=== PATIENT | female | born 1965 | race Caucasian/White ===

== ENCOUNTER 2017-10-29 14:08 | Emergency (ER) | payer BC ==
[2017-10-29 14:26] VITALS: BP 150/85; PULSE 71; TEMP 98.1; BMI 23.8
--- NOTE | 2017-10-29 15:32 | PDOC ---
Rapid Medical Evaluation Chief Complaint: Pain Time Seen by Provider: 10/29/17 15:30 Medical Evaluation: Allergies Allergy/AdvReac Type Severity Reaction Status Date / Time No Known Allergies Allergy Verified 10/29/17 14:22 Vital Signs Temp Pulse Resp BP Pulse Ox 98.1 F 71 18 150/85 100 10/29/17 14:23 10/29/17 14:23 10/29/17 14:23 10/29/17 14:23 10/29/17 14:23 10/29/17 15:30 I have performed a brief in-person evaluation of this patient. The patient presents with a chief complaint of: pain to RLQ since today, denies F/C/V/D Pertinent physical exam findings: tenderness to RLQ I have ordered the following: labs, urine The patient will proceed to the ED for further evaluation. Discharge Disposition - Diagnosis Right lower quadrant abdominal pain - Referrals - Patient Instructions - Post Discharge Activity
[2017-10-29] MEDS ORDERED: SODIUM CHLORIDE 0.9% 1000 ML INFUS.BAG IV ONE (15:54)
[2017-10-29 16:04] LABS: BASO % 0.9 % (0-2.0); EOS % 1.4 % (0-4.5); HEMATOCRIT 31.9 % (32.4-45.2); HEMOGLOBIN 10.8 GM/dL (10.7-15.3); MCH 31.4 pg (25.7-33.7); MCHC 33.9 g/dl (32.0-36.0); MEAN CELL VOLUME 92.7 fl (80-96); MEAN PLT VOLUME 8.8 fl (7.5-11.1); MONO % 8.5 % (3.8-10.2); NEUT % 41.2 % (42.8-82.8); PLATELET COUNT 237 K/MM3 (134-434); RBC 3.44 M/mm3 (3.60-5.2); RDW 13.5 % (11.6-15.6); WHITE BLOOD COUNT 4.7 K/mm3 (4.0-10.0)
[2017-10-29 16:23] LABS: URINE APPEARANCE CLEAR; URINE BILIRUBIN NEGATIVE (<2.0 mg/dL); URINE BLOOD 1+ (NEGATIVE); URINE COLOR STRAW; URINE GLUCOSE (UA) NEGATIVE (NEGATIVE); URINE KETONE NEGATIVE (NEGATIVE); URINE LEUK ESTERASE NEGATIVE (NEGATIVE); URINE NITRITE NEGATIVE (NEGATIVE); URINE PROTEIN NEGATIVE (NEGATIVE); URINE UROBILINOGEN NEGATIVE mg/dL (0.2-1.0)
[2017-10-29 16:25] LABS: HCG,QUALITATIVE URINE NEGATIVE
[2017-10-29 16:34] LABS: EPI CELLS RARE /HPF (FEW)
[2017-10-29 16:41] LABS: ALBUMIN 3.6 g/dl (3.4-5.0); ANION GAP 5 (8-16); BLOOD UREA NITROGEN 11 mg/dL (7-18); CALCIUM 8.9 mg/dL (8.5-10.1); CHLORIDE 108 mmol/L (98-107); CO2 28 mmol/L (21-32); CREATININE 0.6 mg/dL (0.55-1.02); GLUCOSE,RANDOM 96 mg/dL (74-106); POTASSIUM 3.4 mmol/L (3.5-5.1); SGOT/AST 17 U/L (15-37); SGPT/ALT 23 U/L (12-78); SODIUM 141 mmol/L (136-145)
[2017-10-29 16:43] LABS: ALK PHOS 70 U/L (45-117); BILIRUBIN,TOTAL 0.3 mg/dL (0.2-1.0); TOT PROT 6.7 g/dl (6.4-8.2)
--- NOTE | 2017-10-29 18:46 | PDOC ---
History of Present Illness - General History Source: Patient Exam Limitations: No Limitations - History of Present Illness Initial Comments: 10/29/17 18:48 The patient is a 51 year old female with a significant PMH of HTN and urethral prolapse who presents to the emergency department with right sided abdominal pain beginning approximately this morning. She reports waking up this morning with sharp mid to lower right sided abdominal pain which has been worsening and is aggravated by eating, prompting her visit. She notes her abdominal pain alternates between mildly and severely painful. She also reports noting a weird taste in her mouth this morning. The patient denies hematuria. She denies nausea or vomiting. The patient denies chest pain, shortness of breath, headache, and dizziness. Denies fevers, chills, diarrhea, and constipation. Denies dysuria, frequency, urgency. Allergies: NKA Past surgical history: x2. Social history: No reported cigarette, alcohol, or drug use. PCP: None reported. <Jean Marie Peralta - Last Filed: 10/29/17 18:48> <Jeny Urbano - Last Filed: 11/01/17 09:33> - General Chief Complaint: Pain Stated Complaint: RT ABD PAIN Time Seen by Provider: 10/29/17 15:30 Past History <Jean Marie Peralta - Last Filed: 10/29/17 18:48> - Past Medical History COPD: No DVT: No HTN: Yes - Immunization History Immunization Up to Date: Yes - Suicide/Smoking/Psychosocial Hx Smoking History: Never smoked Have you smoked in the past 12 months: No Information on smoking cessation initiated: No Hx Alcohol Use: No Drug/Substance Use Hx: No Substance Use Type: None <Jeny Urbnao - Last Filed: 11/01/17 09:33> - Past Medical History Allergies/Adverse Reactions: Allergies Allergy/AdvReac Type Severity Reaction Status Date / Time No Known Allergies Allergy Verified 10/29/17 14:22 Home Medications: Ambulatory Orders Telmisartan 80 mg PO HS 10/29/17 Review of Systems - Review of Systems Able to Perform ROS?: Yes Comments:: 10/29/17 18:48 GENERAL/CONSTITUTIONAL: No fever or chills. No weakness. HEAD, EYES, EARS, NOSE AND THROAT: No change in vision. No ear pain or discharge. No sore throat. CARDIOVASCULAR: No chest pain or shortness of breath. RESPIRATORY: No cough, wheezing, or hemoptysis. GASTROINTESTINAL: (+) Right side mid to lower abdominal pain. No nausea, vomiting, diarrhea or constipation. GENITOURINARY: No dysuria, frequency, or change in urination. MUSCULOSKELETAL: No joint or muscle swelling or pain. No neck or back pain. SKIN: No rash NEUROLOGIC: No headache, vertigo, loss of consciousness, or change in strength/ sensation. ENDOCRINE: No increased thirst. No abnormal weight change. HEMATOLOGIC/LYMPHATIC: No anemia, easy bleeding, or history of blood clots. ALLERGIC/IMMUNOLOGIC: No hives or skin allergy. <Jean Marie Peralta - Last Filed: 10/29/17 18:48> *Physical Exam - Vital Signs Last Vital Signs Temp Pulse Resp BP Pulse Ox 98.1 F 71 18 150/85 100 10/29/17 14:23 10/29/17 14:23 10/29/17 14:23 10/29/17 14:23 10/29/17 14:23 - Physical Exam Comments: 10/29/17 18:48 GENERAL: Awake, alert, and fully oriented, in no acute distress HEAD: No signs of trauma EYES: PERRLA, EOMI, sclera anicteric, conjunctiva clear ENT: Auricles normal inspection, nares patent. Moist mucosa NECK: Normal ROM, supple, no JVD, or masses LUNGS: Breath sounds equal, clear to auscultation bilaterally. No wheezes, and no crackles HEART: Regular rate and rhythm, normal S1 and S2, no murmurs, rubs or gallops ABDOMEN: (+) Right mid to lower quadrant tenderness. (+) LUQ tenderness. Soft, normoactive bowel sounds. No guarding, no rebound. No masses EXTREMITIES: Normal range of motion, no edema. No clubbing or cyanosis. No cords, erythema, or tenderness NEUROLOGICAL: Alert and oriented x 3. Moves all extremities. Face is symmetric. SKIN: Warm, Dry, normal turgor, no rashes or lesions noted. <Jean Marie Peralta - Last Filed: 10/29/17 18:48> - Vital Signs Last Vital Signs Temp Pulse Resp BP Pulse Ox 98.1 F 71 18 150/85 100 10/29/17 14:23 04/23/18 14:23 10/29/17 14:23 10/29/17 14:23 10/29/17 14:23 <Jeny Urbano - Last Filed: 11/01/17 09:33> ED Treatment Course - LABORATORY CBC & Chemistry Diagram: 10/29/17 15:53 10/29/17 15:53 - ADDITIONAL ORDERS Additional order review: Laboratory Results 10/29/17 10/29/17 10/29/17 15:53 15:53 15:53 Sodium 141 Potassium 3.4 L Chloride 108 H Carbon Dioxide 28 Anion Gap 5 L BUN 11 Creatinine 0.6 Creat Clearance w eGFR > 60 Random Glucose 96 Calcium 8.9 Total Bilirubin 0.3 AST 17 ALT 23 Alkaline Phosphatase 70 Total Protein 6.7 Albumin 3.6 Lipase 123 Urine Color Straw Urine Appearance Clear Urine pH 6.0 Ur Specific Brinkley 1.004 Urine Protein Negative Urine Glucose (UA) Negative Urine Ketones Negative Urine Blood 1+ H Urine Nitrite Negative Urine Bilirubin Negative Urine Urobilinogen Negative Ur Leukocyte Esterase Negative Urine WBC (Auto) <1 Urine RBC (Auto) 1 Ur Epithelial Cells Rare Urine HCG, Qual Negative 10/29/17 15:53 RBC 3.44 L MCV 92.7 MCHC 33.9 RDW 13.5 MPV 8.8 Neutrophils % 41.2 L Lymphocytes % 48.0 H Monocytes % 8.5 Eosinophils % 1.4 Basophils % 0.9 - Medications Given in the ED: ED Medications Discontinued Medications Generic Name Dose Route Start Last Admin Trade Name Freq PRN Reason Stop Dose Admin Sodium Chloride 1,000 ml 10/29/17 15:54 10/29/17 16:29 Normal Saline - IV 10/29/17 15:55 1,000 ml ONCE ONE Administration <Jean Marie Peralta - Last Filed: 10/29/17 18:48> - LABORATORY CBC & Chemistry Diagram: 10/29/17 15:53 10/29/17 15:53 - ADDITIONAL ORDERS Additional order review: Laboratory Results 10/29/17 10/29/17 10/29/17 15:53 15:53 15:53 Sodium 141 Potassium 3.4 L Chloride 108 H Carbon Dioxide 28 Anion Gap 5 L BUN 11 Creatinine 0.6 Creat Clearance w eGFR > 60 Random Glucose 96 Calcium 8.9 Total Bilirubin 0.3 AST 17 ALT 23 Alkaline Phosphatase 70 Total Protein 6.7 Albumin 3.6 Lipase 123 Urine Color Straw Urine Appearance Clear Urine pH 6.0 Ur Specific Brinkley 1.004 Urine Protein Negative Urine Glucose (UA) Negative Urine Ketones Negative Urine Blood 1+ H Urine Nitrite Negative Urine Bilirubin Negative Urine Urobilinogen Negative Ur Leukocyte Esterase Negative Urine WBC (Auto) <1 Urine RBC (Auto) 1 Ur Epithelial Cells Rare Urine HCG, Qual Negative 10/29/17 15:53 RBC 3.44 L MCV 92.7 MCHC 33.9 RDW 13.5 MPV 8.8 Neutrophils % 41.2 L Lymphocytes % 48.0 H Monocytes % 8.5 Eosinophils % 1.4 Basophils % 0.9 - RADIOLOGY Radiology Studies Ordered: Category Date Time Status ABDOMEN & PELVIS CT WITH CONTR [CT] Stat CT Scan 10/29/17 15:55 Taken - Medications Given in the ED: ED Medications Discontinued Medications Generic Name Dose Route Start Last Admin Trade Name Freq PRN Reason Stop Dose Admin Sodium Chloride 1,000 ml 10/29/17 15:54 10/29/17 16:29 Normal Saline - IV 10/29/17 15:55 1,000 ml ONCE ONE Administration <Jeny Urbano - Last Filed: 11/01/17 09:33> Medical Decision Making - Medical Decision Making 10/29/17 18:45 51-year-old female with no past medical history here today complaining of one day of right lower quadrant pain denies any nausea vomiting or chills no urinary complaints no moderating factors initially was sharp and now constant no history of previous abdominal surgery no history of similar pain On exam the patient has right lower right mid quadrant tenderness to palpation no rebound no guarding Differential diagnosis includes appendicitis pyelonephritis UTI renal colic plan CBC CMP CT abdomen and pelvis and urine patient is declining pain medication at this time reassess 10/29/17 17:31 pt left prior to receiving results of ct scan. unable to wait for results. attempt to call radiology, prelim read given to Dr. MOE, pt left prior to receiving read. <Jeny Urbano - Last Filed: 11/01/17 09:33> *DC/Admit/Observation/Transfer - Attestations Scribe Attestion: 10/29/17 18:49 Documentation prepared by Jean Marie Peralta, acting as health care / medical job titles for Jeny Urbano MD. <Jean Marie Peralta - Last Filed: 10/29/17 18:48> <Jeny Urbano - Last Filed: 11/01/17 09:33> Diagnosis at time of Disposition: Right lower quadrant abdominal pain - Discharge Dispostion Disposition: ELOPED
--- NOTE | 2017-11-01 12:08 | PDOC ---
Patient Follow-up (Call Back) - Post ED Follow - Up Chief Complaint: Pain Disposition at time of original discharge: ELOPED Reason for Call Back: Radiology - Disposition Referral:: Toni Gross Rx Needed: No Additional Instructions/Notes: pt informed ct findings as she left prior to results of the test. Offered Gi referral information for patient, however she states she would like to find a GI herself. offered to fax test results but pt declined states she came to hospitals to pick them up and is on way to follow up with her doctor currently.
== END 2017-10-29 19:46 | disposition left against medical advice (07) ==
LOC: JER 14:08
DX: R10.31 Right lower quadrant pain (principal); I10 Essential (primary) hypertension
CPT/HCPCS: 36415; 74177-TC; 80053; 81003; 81015; 83690; 84703; 85025; 87086; 99283-25; J7030